=== PATIENT | female | born 2000 | race Caucasian/White ===

== ENCOUNTER 2021-09-22 09:01 | Emergency (ER) | payer OTHER ==
[~2021-09-22] VITALS: Ht 167.6 cm; Wt 59.1 kg
[2021-09-22 09:15] VITALS: TEMP 97.9
[2021-09-22 10:39] VITALS: BP 115/74; PULSE 70
[2021-09-22] MEDS ORDERED: ZOFRAN ODT4 MG PO (10:48)
== END 2021-09-22 10:53 | disposition home or self-care (01) ==
LOC: COL.ER 09:01
DX: B34.9 Viral infection, unspecified (principal)